=== PATIENT | female | born 1960 | race Caucasian/White ===

== ENCOUNTER 2017-03-09 11:45 | Day surgery (SDC) | payer BC ==
[2017-03-09] MEDS ORDERED: D5 LR 1000 ML 1,000 ML IV ONE (11:53)
[2017-03-09] MEDS ORDERED: DIPRIVAN VIAL 10 ML ONE (13:05)
[2017-03-09 13:44] VITALS: BP 123/68
== END 2017-03-09 13:40 | disposition home or self-care (01) ==
LOC: SURG1 11:45
PROVIDERS: ATTEND Internal Medicine Gastroenterology
PROC: 0DB88ZX Excision of Small Intestine, Via Natural or Artificial Opening Endoscopic, Diagnostic (ICD-10-PCS; principal; 2017-03-09 14:30)
PROC: 0DJ08ZZ Inspection of Upper Intestinal Tract, Via Natural or Artificial Opening Endoscopic (ICD-10-PCS; principal; 2017-03-09 14:30)
PROC: 0DB68ZX Excision of Stomach, Via Natural or Artificial Opening Endoscopic, Diagnostic (ICD-10-PCS; principal; 2017-03-09 14:30)
DX: R10.13 Epigastric pain (principal); R11.0 Nausea; R07.89 Other chest pain; K21.9 Gastro-esophageal reflux disease without esophagitis; K20.8 Other esophagitis; K29.60 Other gastritis without bleeding
CPT/HCPCS: A4217; J3490; J7120

== ENCOUNTER 2017-03-16 10:51 | Day surgery (SDC) | payer BC ==
[2017-03-16] MEDS ORDERED: D5 LR 1000 ML 1,000 ML IV ONE (11:08)
[2017-03-16] MEDS ORDERED: DIPRIVAN VIAL 20 ML ONE (11:42)
[2017-03-16] MEDS ORDERED: DIPRIVAN VIAL 10 ML ONE (12:01)
[2017-03-16] MEDS ORDERED: EPHEDRINE SULFATE INJ ONE (12:06)
[2017-03-16 12:42] VITALS: BP 132/65
== END 2017-03-16 12:45 | disposition home or self-care (01) ==
LOC: SURG1 10:51
PROVIDERS: ATTEND Internal Medicine Gastroenterology
PROC: 0DBN8ZX Excision of Sigmoid Colon, Via Natural or Artificial Opening Endoscopic, Diagnostic (ICD-10-PCS; principal; 2017-03-16 14:45)
PROC: 0DBK8ZX Excision of Ascending Colon, Via Natural or Artificial Opening Endoscopic, Diagnostic (ICD-10-PCS; principal; 2017-03-16 14:45)
PROC: 0DJD8ZZ Inspection of Lower Intestinal Tract, Via Natural or Artificial Opening Endoscopic (ICD-10-PCS; principal; 2017-03-16 14:45)
PROC: 0DBM8ZX Excision of Descending Colon, Via Natural or Artificial Opening Endoscopic, Diagnostic (ICD-10-PCS; principal; 2017-03-16 14:45)
PROC: 0DBP8ZX Excision of Rectum, Via Natural or Artificial Opening Endoscopic, Diagnostic (ICD-10-PCS; principal; 2017-03-16 14:45)
DX: Z12.11 Encounter for screening for malignant neoplasm of colon (principal); K63.5 Polyp of colon; K57.30 Diverticulosis of large intestine without perforation or abscess without bleeding; K64.0 First degree hemorrhoids; D12.4 Benign neoplasm of descending colon; D12.5 Benign neoplasm of sigmoid colon
CPT/HCPCS: A4217; J3490; J7120

== ENCOUNTER 2017-09-28 11:28 | Day surgery (SDC) | payer BC ==
[2017-09-28] MEDS ORDERED: D5 LR 1000 ML 1,000 ML IV ONE (11:29)
[2017-09-28] MEDS ORDERED: DIPRIVAN VIAL 20 ML ONE (12:45)
[2017-09-28 13:44] VITALS: BP 98/62
== END 2017-09-28 13:35 | disposition home or self-care (01) ==
LOC: SURG1 11:28
PROVIDERS: ATTEND Internal Medicine Gastroenterology
PROC: 0DJ08ZZ Inspection of Upper Intestinal Tract, Via Natural or Artificial Opening Endoscopic (ICD-10-PCS; principal; 2017-09-28 16:30)
PROC: 0DBN8ZX Excision of Sigmoid Colon, Via Natural or Artificial Opening Endoscopic, Diagnostic (ICD-10-PCS; principal; 2017-09-28 16:30)
DX: K63.5 Polyp of colon (principal); K57.30 Diverticulosis of large intestine without perforation or abscess without bleeding; K64.0 First degree hemorrhoids; Z85.038 Personal history of other malignant neoplasm of large intestine
CPT/HCPCS: A4217; J3490; J7120